=== PATIENT | female | born 2000 | race Caucasian/White ===

== ENCOUNTER 2024-08-20 11:02 | Outpatient (CLI) | payer OTHER, SELFPAY | END 2024-08-20 11:03 | disposition home or self-care (01) | LOC: NFLDREF 18:28 | PROVIDERS: Visit Provider Nurse Practitioner | DX: N30.00 Acute cystitis without hematuria (principal) | CPT/HCPCS: 87086; 87186 ==

== ENCOUNTER 2024-11-14 22:00 | Emergency (ER) | payer BC, SELFPAY ==
--- OUTSIDE RECORDS SUMMARY | 2024-11-14 22:02 | XMS_ITS | Clinical Summary ---
Author Organization [facility] Address [address] [place] [id number] Care Team Providers Care Engineering Psychologist Name Role Phone Lila Marcus MD Primary Care Provider Allergies Active Allergy Reactions Criticality Noted Date Comments Milk GI Upset 09/29/2014 Medications cholecalciferol, Vitamin D3, (Vitamin D-3) 5,000 unit tab tablet Take by mouth once daily. Active Cetirizine (ZyrTEC) 10 mg cap Take by mouth. Activ e norethin jasmin-eth estrad-fe, 1-20 mg-mcg, (,) tabletIndications :Encounter for surveillance of contraceptive pills Take 1 Tablet by mouth once daily. 90 Tablet 3 3 Active escitalopram oxalate (LEXAPRO) 10 mg tabletIndications :Depression with anxiety Take 1 Tablet (10 mg) by mouth once daily in the morning. 90 Tablet 10/11/2024 3:02 PM CALCULATOR OPERATOR 5 Active clindamycin phos 1%-benzoyl perox 5% gelIndications:Ac ne vulgaris Apply topically to affected area(s) two times daily. 150 g 1 10/14/2024 11:28 AM CALCULATOR OPERATOR 5 Active fluticasone (50 mcg per actuation) nasal solution (FLONASE) ADMINISTER 2 SPRAYS INTO EACH NOSTRIL DAILY 48 g 3 10/11/2024 3:02 PM CALCULATOR OPERATOR 4 Active Hospital, Clinic, or Other Facility Administered Medication Ordered Dose Route Frequency Start Date End Date Status copper intrauterine device (PARAGARD)Indications:Encoun ter for IUD insertion 1 Device IU Q 10 YEARS 03/16/2024 Act medhat Active Problems Problem Noted Date Diagnosed Date Pap smear for cervical cancer screening 08/20/20 23 Overview (08/20/2023): 07/2023 NIL Plan: Pap and HPV due 07/2026 Elevated blood pressure read ing without diagnosis of hypertension 07/09/2022 Seasonal allergies 02/09/2016 Resolved Problems Problem Noted Date Diagnosed Date Resolved Date Concussion with no loss of consciousness 01/19/2013 11/23/2018 Alkaline phosphatase elevation 01/25/2011 11/23/2018 Ingrowing nail 06/22/2010 03/11/2013 Encounters Date Type Department Care Team Description 10/11/2024 Refill [facility] [address] [place] [id number] Lila Marcus MD Refill Request 10/04/2024 Refill [facility] [address] [place] [phone] Lila Marcus MD Refill Request from Last 3 Months Immunizations Name Administration Dates Next Due DTaP 04/11/2006, 2,05/05/2001,03/11,01/02/2001 HIB-HepB (Comvax) 03/11/2001,01/02/2001 HPV 9 (Gardasil 9) 03/20/2020,04/26/2019, 019 Hepatitis A (Peds) 11/19/2018,03/11/2013 Hepatitis B (Adult) 07/08/2022,09/10/2021 Hepatitis B (Peds) 08/05/2001 Hib Conjugate, Unspecified 02/17/2002 Inactivated Polio Vaccine 05/07/2002,03/11/2001, 01/02/2001 Influenza Virus, Unspecified 07/07/2019, 10/05/2012,06/04/2011,11/07,08/01/2006 Influenza, IIV3 (Age >=3 years) 10/05/2012,06/04 Influenza, IIV4 06/28/2022,08/14/2021,07/21/2020 Influenza,CCIIV4 PRESERV FREE 06/18/2023 MENINGOCOCCAL VACCINE 2 VIAL 2MO-55YO (MENVEO) 04/26/2019,11/19/2018 MMR 04/11/2006,11/18/2001 Pneumococcal conj 7-Valent (Prevnar 7) 1,03/11/2001,01/02/2001 Polio Virus, Unspecified 04/11/2006 Td (Age >=7 Years) 07/08/2022 Tdap 03/11/2013 Tuberculin (PPD) 10/30/2020,10/23/2020 Varicella Vaccine 06/04/2011,11/18/2001 Family History Medical History Relation Name Comments Allergies Father Cancer Maternal Grandfather Hypertension Maternal Grandmother Cancer Maternal Uncle Allergies Other Relation Name Status Comments Father Maternal Grandfather Maternal Grandmother Maternal Uncle Other Social History Tobacco Use Types Packs/Day Years Used Date Smoking Tobacco: Never Smokeless Tobacco: Never Comments: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 1 07/15/2023 Transportation Needs Answer Date Record ed Lack of Transportation (Medical) 1 07/15/2023 Housing Stability Answer Date Recorded What is your housing situation today? 1 07/15/2023 Comments No Sex and Gender Information Value Date Recorded Sex Assigned at Not on file Legal Sex Female 7:24 AM CALCULATOR OPERATOR Gender Identity Not on file Sexual Orientation Not on file Obstetrics History Last Filed Vital Signs Vital Sign Reading Time Taken Comments Blood Pressure 122/82 03/16/2024 2:29 PM CDT Pulse 83 03/16/2024 2:29 PM CDT Temperature 37.1 C (98.7 F) 03/02/2023 11:49 AM CDT Respiratory Rate 18 03/02/2023 11:49 AM CDT Oxygen Saturation 99% 03/16/2024 2:29 PM CDT Inhaled Oxygen Concentration - - Weight 93.9 kg (207 lb) 03/16/2024 2:29 PM CDT Height 172.7 cm (5' 8) 03/16/2024 2:29 PM CDT Body Mass Index 31.47 03/16/2024 2:29 PM CDT Plan of Treatment Health Maintenance Due Date Last Done Comments HIV for age 15-65 2015 COVID-19 vaccine series ( season) 2024 06/28/2022 Influenza for age 9-49 05/23/2024 , 06/28/2022, 08/14/2021, Additional history exists BMI (ht and wt on same day) for age 18+ 03/16/2025 03/16/2024, 03/02/2023, 07/08/2022, Additional history exists Depression screening for age 12+ 03/16/2025 03/16/2024, 10/07/2022, 07/08/2022, Additional history exists Pap test for age 21-65 08/05/2026 08/05/2023 Tetanus booster 07/08/2032 07/08/2022, 03/11/2013 Pneumococcal series for age 6-49 Aged Out 05/05/2001, 03/11/2001, 01/02/2001 No longer eligible based on patient's age to complete this topic Tdap Completed 03/11/2013 HPV series for age 9-26 Completed 03/20/20, 04/26/2019, 11/19/2018 Hepatitis C screening for age 18-79 Completed 07/08/2022 Procedures Procedure Name Priority Date/Time Associated Diagnosis Comments ENTREPRENEUR THIN PREP PAP SCREEN IMAGED Routine 08/05/2023 4:12 PM CALCULATOR OPERATOR Cervical cancer screening ANTI HCV Routine 07/08/2022 3:50 PM CDT Need for hepatitis C screening test from Last 3 Months or Most Recently Relevant to Health Maintenance Results * ENTREPRENEUR THIN PREP PAP SCREEN IMAGED (08/05/2023 4:12 PM CALCULATOR OPERATOR) Case Report Gynecologic Cytology Report Case: [id number] Authorizing Provider: Lila Marcus MD Collected: 08/05/2023 1612 Ordering Location: [facility] Received: 08/05/2023 1654 Clinic First Screen: Stephane Taylor Rescreen: Ariela Woody Specimen: ENTREPRENEUR ThinPrep Vial Screening, Cervical 08/20/2023 10:51 AM CALCULATOR OPERATOR [facility] INTERPRETATION/ RESULT NEGATIVE FOR INTRAEPITHELIAL LESION OR MALIGNANCY (NIL) (none) 08/20/2023 10:51 AM CALCULATOR OPERATOR [facility] IMEN ADEQUACY Satisfactory for evaluation Endocervical component present 08/20/2023 10:51 AM CALCULATOR OPERATOR [facility] Date of LMP 07/14/2023 08/20/2023 10:51 AM CALCULATOR OPERATOR [facility] Last Pap Date none 08/20/2023 10:51 AM CALCULATOR OPERATOR [facility] Last Pap Result First Pap/Unknown 10:51 AM CALCULATOR OPERATOR [facility] Abnormal Pap or Aniwa Bx in last 5 years No 08/20/2023 10:51 AM CALCULATOR OPERATOR [facility] Menstrual Status Regular Periods 08/20/2023 10:51 AM CALCULATOR OPERATOR [facility] Aniwa Bx Done Today No 08/20/2023 10:51 AM CALCULATOR OPERATOR [facility] Additional Information None given 08/20/2023 10:51 AM CALCULATOR OPERATOR [facility] Comment: Cytology is screened at [facility] [employer], Central Laboratory - [address], [place] [address] [facility] - [address], [place] [address] [facility] - [address] [place] [address] [facility] - [address], [place] [address] Automated Review Successful 08/20/2023 10:51 AM CALCULATOR OPERATOR [facility] Comment:Specimen processed s uccessfully by automated warehouse logistics manager device, ThinPrep Imaging System, [employer] Note The pap test is a screening technique, not a diagnostic procedure. It is used primarily to screen for squamous cancers and precursor lesions. Published studies have shown that it is subject to both false negative and false positive results. The pap test should not be used as the sole means to diagnose or exclude pre-malignant and malignant lesions. 08/20/2023 10:51 AM CALCULATOR OPERATOR [facility] Other (Cervical) Non-Blood / Unknown 08/05/2023 4:12 PM CALCULATOR OPERATOR 08/05/2023 4:54 PM CALCULATOR OPERATOR us Lila Marcus MD PATHOLOGY/CYTOLOGY Final Re sult [facility] [address] [place] [address], [place] * ANTI HCV (07/08/2022 3:50 PM CDT) HEPATITIS C ANTIBODY Non-React medhat Non-React medhat 07/09/2022 8:35 PM CDT [facility] Comment:Antibodies to HCV no t detected; does not exclude the possibility of exposure to HCV. Blood BLOOD SPECIMEN / Unknown Venipuncture / Unknown 07/08/2022 3:50 PM CDT 07/08/2022 3:50 PM CDT us Carmencita Su MD SEND OUTS Final Result [facility] [address] [place] [address], [place] from Last 3 Months or Most Recently Relevant to Health Maintenance Care Teams Engineering Psychologist Relationship Specialty Start Date End Date Lila Marcus MD [address] [place] [address] PCP - General Family Practice 08/05/23
[2024-11-14 22:14] VITALS: BP 104/54; PULSE 136; RESP 18; TEMP 37; O2SAT 98; BMI 30.4
--- NOTE | 2024-11-14 22:26 | ED.GENADULT ---
HPI - General Adult General Time Seen by Provider: 22:26 Date Seen: 11/14/24 Chief complaint: Abdominal Pain Stated complaint: abdominal pain, diarrhea Time Seen by Provider: 11/14/24 22:26 Source: patient and RN notes reviewed Mode of arrival: ambulatory Limitations: no limitations History of Present Illness HPI narrative: This 24-year-old female is coming in with nausea, vomiting, diarrhea and abdominal pain. Pain is in the upper abdomen, throughout the whole upper abdomen, feels like it is constantly there, she does feel it in her back. She started vomiting and having diarrhea around 11:00 a.m. this morning. She is kept in a few ice chips but otherwise not able to keep anything else down including other fluids. She did try some Pepto-Bismol at home but did not stay down. She has had no blood in vomit or diarrhea. She does work at [employer] and certainly could have exposure to illness. There is no respiratory symptoms with this but nursing staff did collect triple viral swab. We did discuss that sometimes GI symptoms are prominent with COVID or influenza. She is aware that norovirus has been problematic in the community as well. She has had no fevers, did take her temperature. She does not have Zofran at home, states she just could not take it anymore. She denies any recent travel. No history of C difficile colitis. Related Data Home Medications ?Medication ?Instructions ?Recorded ?Confirmed clindamycin 1 %-benzoyl peroxide 5 1 applic topical QAM 08/20/24 08/20/24 % topical gel escitalopram oxalate 10 mg tablet 10 mg PO DAILY 08/20/24 08/20/24 Allergies Allergy/AdvReac Type Severity Reaction Status Date / Time No Known Drug Allergies Allergy Verified 08/20/24 11:06 Review of Systems Status of ROS: Reports: 6 or more systems reviewed and unremarkable except as noted in History and below PFSH PFS Social History Smoking Status: Never smoker Non-prescribed substance use: denies use Exam Const: Vital Signs, click to edit/add: Vital Signs - 24 hr 11/14/24 22:14 Temperature 98.6 F Pulse Rate [Left P ulse Oximeter] 136 H Respiratory Rate 18 Blood Pressure [Ri ght Upper Arm] 104/54 L Pulse Oximetry 98 Oxygen Delivery Me thod Room Air This 24-year-old female is alert, interactive, no apparent distress but looks like she does not feel well. Pupils are equal round, sclera clear, symmetrical facial function. Lips are dry and cracked, oropharynx dry mucosa but no exudates or erythema. Speech is normal. Lungs are clear, good air entry, no wheezing or crackles. CV fast but regular, no murmur noted, normal S1 and S2. Abdomen is soft, nontender, nondistended, no organomegaly or masses noted, bowel sounds are present, no concerning character to them. Skin visualized without rash. Documenting provider has reviewed patient's vital signs: yes Course Course ED Course: Will await the triple viral swab. Patient will have an IV established, give her a L of normal saline and 4 mg IV Zofran. If discharged, we have discussed giving her Zofran from [facility]. We will check baseline labs. Does not seem to require any imaging at this time and highly suspect a viral gastroenteritis. Will re-evaluate once we have all or labs, see how her course goes with Zofran and IV fluids. I forsee likely discharge to home. We will give her some IV Toradol for her generalized discomfort as she has not been able to keep anything down, will not be able to take oral Tylenol or ibuprofen at this point. Reevaluation(s) Time of Reevaluation #1: 23:30 Reevaluation #1: Patient is as to how she is doing, she states she is feeling better. Heart rate is down to about 110 on auscultation. The Toradol has helped, she is wanting the full dose, will give her 30 mg. She did request something more for pain. Given her improvement, her initial abdominal examination and normal labs, do not feel that we need to do any imaging. Would recommend period of observation and conservative management. Time of Reevaluation #2: 23:34 Reevaluation #2: Have reviewed with patient her normal labs. She states she overall is feeling better, is completed a L of IV fluids. Her heart rate has come down to about 110 on auscultation. Discussed a 2 L which she would like. She is requesting a little something more for pain. With her normal labs and benign abdominal examination, do not feel that any imaging is necessary. Discussed giving the full dose of Toradol with another 15 mg dose, she would like that. Vital Signs Vital signs: Initial Vital Signs Temperature 98.6 F 02/23/25 22:14 Temperature Source Temporal Artery Scan 11/14/24 22:14 Pulse Rate 136 H 11/14/24 22:14 Pulse Rhythm Regular 11/14/24 22:14 Respiratory Rate 18 11/14/24 22:14 Blood Pressure 104/54 L 11/14/24 22:14 Blood Pressure Mean 70 11/14/24 22:14 Blood Pressure Position Sitting 11/14/24 22:14 Pulse Oximetry 98 11/14/24 22:14 Oxygen Delivery Method Room Air 11/14/24 22:14 Vital Signs Temperature 98.6 F 11/14/24 22:14 Pulse Rate 136 H 11/14/24 22:14 Respiratory Rate 18 11/14/24 22:14 Blood Pressure 104/54 L 11/14/24 22:14 Pulse Oximetry 98 11/14/24 22:14 Oxygen Delivery Method Room Air 11/14/24 22:14 Temperature 98.6 F 11/14/24 22:14 Pulse Rate 100 11/15/24 00:14 Respiratory Rate 18 11/15/24 00:14 Blood Pressure 104/54 L 11/14/24 22:14 Pulse Oximetry 96 11/15/24 00:14 Oxygen Delivery Method Room Air 11/15/24 00:14 Medications Administered Medications: Discontinued Medications Generic Name Dose Route Start Last Admin Trade Name Freq PRN Reason Stop Dose Admin Sodium Chloride 1,000 mls @ 1,000 mls/hr 11/14/24 22:33 11/14/24 23:52 0.9 % Sodium Chloride 1000 Ml IV 11/14/24 23:32 Infused .Q1H FRANCESCO Infusion Sodium Chloride 1,000 mls @ 1,000 mls/hr 11/14/24 23:35 11/14/24 23:49 0.9 % Sodium Chloride 1000 Ml IV 11/15/24 00:34 1,000 mls/hr .Q1H FRANCESCO Administration Ketorolac Tromethamine 15 mg 11/14/24 22:56 11/14/24 23:01 Ketorolac 15 Mg/Ml Inj IVP 11/14/24 22:57 15 mg ONCE ONE Administration Ketorolac Tromethamine 15 mg 11/14/24 23:35 11/14/24 23:50 Ketorolac 15 Mg/Ml Inj IVP 02/23/25 23:36 15 mg ONCE ONE Administration Ondansetron HCl 4 mg 11/14/24 22:32 11/14/24 22:59 Ondansetron 2 Mg/Ml Inj IVP 11/14/24 22:33 4 mg ONCE ONE Administration Medical Decision Making Lab Data Lab results reviewed: Yes I reviewed the patient's lab results Labs: Lab Results 11/14/24 11/14/24 Range/Units 22:24 22:45 WBC 10.23 (4.50-11.00) K/uL RBC 5.02 (4.00-5.20) m/uL Hgb 14.5 (12.0-16.0) gm/dL Hct 43.9 (33.0-51.0) % MCV 88 (80-100) fL MCH 29 (26-34) pg MCHC 33 (32-36) gm/dL RDW Coeff of Isidra 12.9 (11.5-15.5) % Plt Count 249 (140-440) K/uL Neut % (Auto) 90.9 H (42.0-72.0) % Lymph % (Auto) 3.1 L (20-44) % [place] % (Auto) 4.9 (0.0-11.0) % Eos % (Auto) 0.1 (0.0-7.0) % Baso % (Auto) 0.1 (0.0-3.0) % Neut # (Auto) 9.30 H (1.7-7.0) K/uL Lymph # (Auto) 0.30 L (0.90-2.90) K/uL [place] # (Auto) 0.50 (0.00-0.90) K/UL Eos # (Auto) 0.01 (0.00-0.50) K/uL Baso # (Auto) 0.01 (0.00-0.30) K/uL Abs Immat Gran (auto) 0.09 (0.00-0.30) K/uL Imm/Tot Granulo (auto) 0.9 % Sodium 136 (135-149) mmol/L Potassium 3.7 (3.6-5.1) mmol/L Chloride 100 (96-114) mmol/L Carbon Dioxide 22 (20-32) mmol/L Anion Gap 14 (7-15) mEq/L BUN 18 (5-24) mg/dL Creatinine 0.7 (0.5-1.5) mg/dL Estimated Creat Clear 125.01 Estimated GFR 124 ml/min Glucose 143 H (60-115) mg/dL Lactate 1.9 (0.5-1.9) mmol/L Calcium 9.0 (8.4-10.6) mg/dL Total Bilirubin 1.0 (0.1-1.5) mg/dL AST 30 (12-35) U/L ALT 38 H (4-35) U/L Alkaline Phosphatase 74 (40-150) U/L Total Protein 8.2 (6.0-8.3) g/dL Albumin 4.8 (3.3-5.0) g/dL SARS-CoV-2 (PCR) Negative SARS-CoV-2 (Negative) Influenza Type A (PCR) Negative PCR FLU A (Negative) Influenza Type B (PCR) Negative PCR FLU B (Negative) RSV (PCR) Negative PCR RSV (Negative) Discharge Plan Discharge Clinical Impression: Gastroenteritis Patient Disposition: Home, Self-Care Condition: Improved Instructions: Gastroenteritis (ED), Acute Nausea and Vomiting (ED), Nutrition Tips for Relief of Diarrhea (ED) Additional Instructions: Zofran from [facility] provided, 4 mg every 8 hours as needed for nausea or vomiting, 10 tablets provided. Drink small frequent sips of fluids until you are improving. Recommend 1-2 tsp every 5-10 minutes while awake to help prevent dehydration as well as over loading your stomach causing more vomiting. Can increase your diet back to solids following the handout as you are feeling better. If you are not improving in the next couple days, feel you are worsening, unable to get oral intake of fluids despite Zofran, have further concerns, do recommend re-evaluation. Activity Level: Activity as Tolerated Prescriptions: No Action escitalopram oxalate 10 mg tablet 10 mg PO DAILY clindamycin-benzoyl peroxide 1-5 % gel 1 applic topical QAM Follow Up/Referrals: Provider,Not a Local [Primary Care Provider] - Stand Alone Forms: [facility] Info Instructions
[2024-11-14 22:32] VITALS: O2SAT 96
[2024-11-14 22:59] LABS: Lactate* 1.9 mmol/L (0.5-1.9)
[2024-11-14] MEDS: ONDANSETRON 2 MG/ML inj 4 MG IVP (22:59)
[2024-11-14] MEDS: 0.9 % SODIUM CHLORIDE 1000 ml 1,000 ML IV ×2 (22:59→23:49)
[2024-11-14 23:00] LABS: Basophils Absolute Auto 0.01 K/uL (0.00-0.30); Basophils Percent Auto 0.1 % (0.0-3.0); Eosinophils Absolute Auto 0.01 K/uL (0.00-0.50); Eosinophils Percent Auto 0.1 % (0.0-7.0); Hematocrit 43.9 % (33.0-51.0); Hemoglobin* 14.5 gm/dL (12.0-16.0); Immature Granulocytes Abs Auto 0.09 K/uL (0.00-0.30); Immature Granulocytes Pct Auto 0.9 %; Lymphocytes Percent Auto 3.1 % (20-44); Mean Corpuscular HGB Conc 33 gm/dL (32-36); Mean Corpuscular Hemoglobin 29 pg (26-34); Mean Corpuscular Volume 88 fL (80-100); Monocytes Percent Auto 4.9 % (0.0-11.0); Neutrophils Percent Auto 90.9 % (42.0-72.0); Platelet Count* 249 K/uL (140-440); RDW Coefficient of Variation % 12.9 % (11.5-15.5); Red Blood Count 5.02 m/uL (4.00-5.20); White Blood Count* 10.23 K/uL (4.50-11.00)
[2024-11-14] MEDS: KETOROLAC 15 MG/ML inj IVP ×2 (23:01→23:50)
[2024-11-14 23:06] LABS: Slide Review Reflex No
[2024-11-14 23:14] LABS: PCR FLU A Negative PCR FLU A (Negative); PCR FLU B Negative PCR FLU B (Negative); PCR RSV Negative PCR RSV (Negative); SARS PCR* Negative SARS-CoV-2 (Negative)
[2024-11-14 23:15] LABS: Albumin* 4.8 g/dL (3.3-5.0); Chloride* 100 mmol/L (96-114); Potassium* 3.7 mmol/L (3.6-5.1); Sodium* 136 mmol/L (135-149)
[2024-11-14 23:18] LABS: Alanine Aminotransferase* 38 U/L (4-35); Alkaline Phosphatase* 74 U/L (40-150); Anion Gap 14 mEq/L (7-15); Aspartate Amino Transferase* 30 U/L (12-35); Blood Urea Nitrogen* 18 mg/dL (5-24); Carbon Dioxide* 22 mmol/L (20-32); Creatinine* 0.7 mg/dL (0.5-1.5); Est. Creatinine Clearance* 125.01; Estimated Glomerular Filt Rate 124 ml/min; Glucose* 143 mg/dL (60-115); Total Protein* 8.2 g/dL (6.0-8.3)
--- OUTSIDE RECORDS SUMMARY | 2024-11-14 23:26 | XMS_ITS | Clinical Summary ---
Author Organization [facility] Address [address] [place] [id number] Care Team Providers Care Event Sales Manager Name Role Phone Lila Marcus MD Primary Care Provider [phone] Allergies Active Allergy Reactions Criticality Noted Date [...] the morning. 90 Tablet 10/11/2024 3:02 PM SENIOR PENSIONS ADMINISTRATOR 5 Active clindamycin phos 1%-benzoyl perox 5% gelIndications:Ac ne vulgaris Apply topically to affected area(s) two times daily. 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 Alcohol Use Standard Drinks/Week Comments Yes [...] on file Legal Sex Female 7:24 AM SENIOR PENSIONS ADMINISTRATOR Gender Identity Not on file Sexual Orientation [...] Procedure Name Priority Date/Time Associated Diagnosis Comments GREENS CUTTER THIN PREP PAP SCREEN IMAGED Routine 08/05/2023 4:12 PM SENIOR PENSIONS ADMINISTRATOR Cervical cancer screening ANTI HCV Routine 07/08/2022 3:50 PM CDT Need for hepatitis C screening test from Last 3 Months or Most Recently Relevant to Health Maintenance Results * GREENS CUTTER THIN PREP PAP SCREEN IMAGED (08/05/2023 4:12 PM SENIOR PENSIONS ADMINISTRATOR) Case Report Gynecologic Cytology Report Case: [id number] Authorizing Provider: Lila Marcus MD Collected: 08/05/2023 1612 Ordering Location: [facility] Received: 08/05/2023 1654 Clinic First Screen: Stephane Taylor Rescreen: Ariela Woody Specimen: GREENS CUTTER ThinPrep Vial Screening, Cervical 08/20/2023 10:51 AM SENIOR PENSIONS ADMINISTRATOR [email or web address] INTERPRETATION/ RESULT NEGATIVE FOR INTRAEPITHELIAL LESION OR MALIGNANCY (NIL) (none) 08/20/2023 10:51 AM SENIOR PENSIONS ADMINISTRATOR [facility] IMEN ADEQUACY Satisfactory for evaluation Endocervical component present 08/20/2023 10:51 AM SENIOR PENSIONS ADMINISTRATOR [facility] Date of LMP 07/14/2023 08/20/2023 10:51 AM SENIOR PENSIONS ADMINISTRATOR [facility] Last Pap Date none 08/20/2023 10:51 AM SENIOR PENSIONS ADMINISTRATOR [email or web address] Last Pap Result First Pap/Unknown 10:51 AM SENIOR PENSIONS ADMINISTRATOR [facility] Abnormal Pap or [place] Bx in last 5 years No 08/20/2023 10:51 AM SENIOR PENSIONS ADMINISTRATOR [facility] Menstrual Status Regular Periods 08/20/2023 10:51 AM SENIOR PENSIONS ADMINISTRATOR [email or web address] [place] Bx Done Today No 08/20/2023 10:51 AM SENIOR PENSIONS ADMINISTRATOR [facility] Additional Information None given 08/20/2023 10:51 AM SENIOR PENSIONS ADMINISTRATOR [facility] Comment: Cytology is screened at [facility] [place], [facility] - [address], [place] [address] and [facility] - [address], [place] [address] and [facility] - [address] [place] [address] [facility] - [address], [place] [address] Automated Review Successful 08/20/2023 10:51 AM SENIOR PENSIONS ADMINISTRATOR [facility] Comment:Specimen processed s uccessfully by automated cosmetology teacher device, ThinPrep Imaging System, [employer] Note The pap test is a screening technique, not a diagnostic procedure. It is used primarily to screen for squamous cancers and precursor lesions. Published studies have shown that it is subject to both false negative and false positive results. The pap test should not be used as the sole means to diagnose or exclude pre-malignant and malignant lesions. 08/20/2023 10:51 AM SENIOR PENSIONS ADMINISTRATOR [facility] Other (Cervical) Non-Blood / Unknown 08/05/2023 4:12 PM SENIOR PENSIONS ADMINISTRATOR 08/05/2023 4:54 PM SENIOR PENSIONS ADMINISTRATOR us Lila Marcus MD PATHOLOGY/CYTOLOGY Final Re sult [facility] [address] [place] [address], [place] * ANTI HCV (07/08/2022 3:50 PM CDT) HEPATITIS C ANTIBODY Non-React medhat Non-React medhat 07/09/2022 8:35 PM CDT [facility] Comment:Antibodies to HCV no t detected; does not exclude the possibility of exposure to HCV. Blood BLOOD SPECIMEN / Unknown Venipuncture / Unknown 07/08/2022 3:50 PM CDT 07/08/2022 3:50 PM CDT us Carmencita Su MD SEND OUTS Final Result [facility] [address] [place] [address], [place] from Last 3 Months or Most Recently Relevant to Health Maintenance Care Teams Event Sales Manager Relationship Specialty Start Date End Date Lila Marcus MD [address] [place] [address] PCP - General Family Practice 08/05/23
[2024-11-15 00:14] VITALS: PULSE 100; RESP 18; O2SAT 96
== END 2024-11-15 00:26 | disposition home or self-care (01) ==
PROVIDERS: Emergency Provider Family Medicine
DX: K52.9 Noninfective gastroenteritis and colitis, unspecified (principal)
CPT/HCPCS: 36415; 80053; 83605; 85025; 87631; 94761; 96374; 96375; 99284; J1885; J2405; J7030

== ENCOUNTER 2025-08-22 17:07 | Outpatient (CLI) | payer BC, SELFPAY ==
--- NOTE | 2025-08-22 17:30 | CRLHL7_ITS ---
For Patients: As a result of the Century Cures Act, medical imaging exams and procedure reports are released immediately into your electronic medical record. You may view this report before your referring provider. If you have questions, please contact your health care provider. OB ULTRASOUND INDICATION: Positive test with IUD. TECHNIQUE: Real time grayscale imaging of the fetus was performed. Transvaginal. Transvaginal imaging performed to better demonstrate the endometrium and ovaries. LMP: 07/09/2025. KARELY by LMP: 04/15/2026. GA: 6 w, 2 d. Previous US: No. CRL: 0.74 cm. 6 w 4 d. KARELY: 04/13/2026. FHR: 135 BPM. Gestational sac: 2.6 cm. Appears within normal limits. Yolk sac: 2.2 mm. Appears within normal limits. Right ovary: 5.2 x 2.9 x 2.8 cm. CL. Left ovary: 3.3 x 2.0 x 1.8 cm. IMPRESSION: 1. Single living intrauterine measures 6 weeks 4 days with sonographic due date 04/13/2026. Normal position of the gestational sac. 2. IUD is present within the endocervix. 3. Simple right ovarian cyst measures 2.1 x 2.3 x 2.0 cm. Corpus luteal cyst right ovary measures 2.5 x 1.9 x 1.9 cm. Boo Beyer M.D. Diagnostic Radiologist [email or web address] TREASURE/jane lara/Dictated by: Boo Beyer MD @ 08/23/2025 7:15:00 AM (Electronically Signed)
== END 2025-08-22 17:08 | disposition home or self-care (01) ==
LOC: US 17:09
PROVIDERS: Visit Provider Physician Assistant
DX: O26.31 Retained intrauterine contraceptive device in pregnancy, first trimester (principal); O34.81 Maternal care for other abnormalities of pelvic organs, first trimester; N83.291 Other ovarian cyst, right side; Z3A.01 Less than 8 weeks gestation of pregnancy
CPT/HCPCS: 76817

== ENCOUNTER 2025-08-26 14:05 | Outpatient (CLI) | payer BC, SELFPAY | END 2025-08-26 14:06 | disposition home or self-care (01) | PROVIDERS: Visit Provider Obstetrics & Gynecology | DX: Z34.91 Encounter for supervision of normal pregnancy, unspecified, first trimester (principal) | CPT/HCPCS: 86850; 86900; 86901 ==

== ENCOUNTER 2025-09-06 13:03 | Outpatient (CLI) | payer BC, SELFPAY ==
--- NOTE | 2025-09-06 13:00 | CRLHL7_ITS ---
For Patients: As a result of the Cures Act, medical imaging exams and procedure reports are released immediately into your electronic medical record. You may view this report before your referring provider. If you have questions, please contact your health care provider. OB ULTRASOUND INDICATION: Dating and viability. TECHNIQUE: Real time grayscale imaging of the fetus was performed. Transvaginal. Transvaginal imaging performed to better demonstrate the endometrium and ovaries. LMP: 07/09/2025. KARELY by LMP: 04/15/2026. GA: 8 w, 3 d. Previous US: Yes 08/22/2025. KARELY by US: 04/13/2026. GA: 6 w, 4 d. CRL: 2.2 cm. 8 w 6 d. KARELY: 04/12/2026. FHR: 184 BPM. Gestational sac: 4.2 cm. Appears within normal limits. Yolk sac: 3.4 mm. Appears within normal limits. Right ovary: 4.7 x 2.5 x 3.0 cm. CL. Left ovary: 3.1 x 2.0 x 1.9 cm. IMPRESSION: 1. Single living intrauterine measures 8 weeks 6 days with sonographic due date 04/12/2026. 2. heart rate 184 beats per minute. Boo Beyer M.D. Diagnostic Radiologist [email or web address] TREASURE/jane lara/Dictated by: Boo Beyer MD @ 09/06/2025 3:03:00 PM (Electronically Signed)
== END 2025-09-06 13:04 | disposition home or self-care (01) ==
LOC: US 13:04
PROVIDERS: Visit Provider Advanced Practice Midwife
DX: Z36.89 Encounter for other specified antenatal screening (principal); Z3A.08 8 weeks gestation of pregnancy
CPT/HCPCS: 76817

== ENCOUNTER 2025-09-06 14:14 | Outpatient (CLI) | payer BC, SELFPAY | END 2025-09-06 14:15 | disposition home or self-care (01) | PROVIDERS: Visit Provider Advanced Practice Midwife | DX: Z34.91 Encounter for supervision of normal pregnancy, unspecified, first trimester (principal) | CPT/HCPCS: 80048; 83020; 83021; 85660; 86703; 86704; 86706; 86762; 86780; 86787; 86803; 86850; 86900; 86901; 87086; 87340 ==

== ENCOUNTER 2025-09-16 13:13 | Outpatient (CLI) | payer BC, SELFPAY | END 2025-09-16 13:14 | disposition home or self-care (01) | PROVIDERS: Visit Provider Advanced Practice Midwife | DX: R74.8 Abnormal levels of other serum enzymes (principal) | CPT/HCPCS: 80053 ==